=== PATIENT | male | born 1995 | race Caucasian/White ===

== ENCOUNTER 2022-12-11 20:57 | Emergency (ER) | payer SELFPAY ==
[~2022-12-11] VITALS: Ht 165.1 cm; Wt 87.0 kg
[2022-12-11 23:06] VITALS: BP 133/95; PULSE 76; RESP 14; TEMP 98.3; O2SAT 100
[2022-12-12] MEDS ORDERED: IBUPROFEN 600MG TABLET PO STA (00:51)
[2022-12-12] MEDS ORDERED: BACITRACIN ZINC OINT UDPKT TOP ONE (02:00)
[2022-12-12] MEDS ORDERED: TETANUS, DIPHTHERIA, PERTUSSIS VAC/PF 0.5ML (>10YR OLD) IM ONE (02:00)
[2022-12-12] MEDS ORDERED: CEPH500C2 PO (02:36)
[2022-12-12] MEDS ORDERED: IBUP-2029 PO (02:36)
== END 2022-12-12 02:54 | disposition home or self-care (01) ==
LOC: ER 23:32
DX: S31.050A Open bite of lower back and pelvis without penetration into retroperitoneum, initial encounter (principal); Y08.89XA Assault by other specified means, initial encounter; Y93.89 Activity, other specified; Y92.89 Other specified places as the place of occurrence of the external cause; Y99.8 Other external cause status
CPT/HCPCS: 99283; 71046; 90715; 90471; Z7610